=== PATIENT | female | born 1955 | race Hispanic/Latino ===

== ENCOUNTER → 2020-06-02 | Day surgery (SDC) | payer MEDICARE, OTHER ==
--- NOTE | 2020-05-30 15:50 | Diagnostic Imaging Report ---
EXAMINATION: CHEST 2 VIEWS INDICATION: Pre-operative COMPARISON: None FINDINGS: LINES/TUBES:None LUNGS:The lungs are well-inflated. No focal consolidation or pulmonary edema. PLEURA:No pleural effusion or pneumothorax. MEDIASTINUM:The cardiomediastinal silhouette appears normal in size and shape. BONES/SOFT TISSUES:No acute osseous injury. ABDOMEN:No free air under the diaphragm. IMPRESSION: No focal pneumonia or pulmonary edema. Signed by: Elenita Alvarez MD on 05/30/2020 3:47 PM
[2020-05-30 16:00] LABS: BASOPHILS # (AUTO) 0.1 (0.0-0.1); BASOPHILS % 0.6 % (0.0-1.0); EOSINOPHILS # (AUTO) 0.1 (0.0-0.4); EOSINOPHILS % 1.5 % (0.0-6.0); HEMATOCRIT 39.9 % (34.2-44.1); HEMOGLOBIN 12.7 g/dL (12.0-16.0); LYMPHOCYTES # (AUTO) 1.8 (1.0-3.2); LYMPHOCYTES % 22.9 % (18.0-39.1); MEAN CORPUSCULAR HEMOGLOBIN 29.4 pg (28-32); MEAN CORPUSCULAR HGB CONC 31.8 g/dL (31-35); MEAN CORPUSCULAR VOLUME 92.4 fL (81-99); MONOCYTES # (AUTO) 0.5 (0.2-0.8); MONOCYTES % 6.5 % (4.4-11.3); NEUTROPHILS # (AUTO) 5.4 (2.1-6.9); NEUTROPHILS % 68.4 % (38.7-80.0); PLATELET COUNT 206 x10e3/uL (140-360); RED BLOOD COUNT 4.32 x10e6/uL (3.6-5.1); RED CELL DISTRIBUTION WIDTH 12.6 % (11.7-14.4)
[2020-05-30 16:20] LABS: ALANINE AMINOTRANSFERASE 62 IU/L (0-55); ALBUMIN 3.5 g/dL (3.5-5.0); ALKALINE PHOSPHATASE 92 IU/L (40-150); ANION GAP 11.9 mmol/L (8-16); BLOOD UREA NITROGEN 15 mg/dL (7-26); BUN/CREATININE RATIO 16 (6-25); CALCIUM 8.6 mg/dL (8.4-10.2); CARBON DIOXIDE 28 mmol/L (22-29); CHLORIDE 103 mmol/L (98-107); CREATININE, SERUM 0.92 mg/dL (0.57-1.11); EST GLOMERULAR FILTRATION RATE > 60 ML/MIN (60-); GLUCOSE 115 mg/dL (74-118); POTASSIUM 3.9 mmol/L (3.5-5.1); SODIUM 139 mmol/L (136-145)
[~2020-06-02] MED LIST: ACETAMINOPHEN/CODEINE 300MG - 30MG TAB ONE; ACETAMINOPHEN325 M1 PO; ATROPINE SULFATE 1 MG/ML VIAL ONE; BUPIVACAINE 0.25%/EPI 30ML SDV INJ ONE; CEFAZOLIN SOD 1 GM/NS 50ML 50 ML IV ONE; DEXAMETHASONE SOD PHOS INJ 4 MG/ML VIAL ONE; DICYCLOMINE HCL20 MG PO; ETOMIDATE 40 MG/ 20ML VIAL IV ONE; FENTANYL CITRATE/PF 100MCG/2 ML INJ ONE; HYDROGEN PEROXIDE 120 ML BTL ONE; KETOROLAC TROMETHAMINE 30 MG/ML VIAL ONE; LISINOPRIL-HCT1 EACH PO; LOSARTAN POTASS25 MG PO; MIDAZOLAM HCL 2 MG/2 ML VIAL ONE; NEOSTIGMINE 1 MG/ML 10ML VIAL ONE; NEOSTIGMINE 5 MG/5ML SYR ONE; ONDANSETRON HCL INJ 2MG/ML 2ML 2 MG/ML VIAL ONE; ROCURONIUM BROMIDE 10 MG/ML 5ML VIAL IV ONE; SEVOFLURANE INHAL SOLN 250 ML PEN BTL ONE; ZOFRAN4 MG PO
--- NOTE | 2020-06-02 11:18 | Operative Report ---
DATE OF PROCEDURE: 06/02/2020 SURGEON: Bright Irizarry MD PREOPERATIVE DIAGNOSES: Cholelithiasis, chronic cholecystitis, morbid obesity, and hypertension. POSTOPERATIVE DIAGNOSES: Cholelithiasis, chronic cholecystitis, morbid obesity, and hypertension. PROCEDURE PERFORMED: Laparoscopic cholecystectomy. ANESTHESIA: General. ESTIMATED BLOOD LOSS: Minimal. DRAINS: None. COMPLICATIONS: None. INDICATION AND FINDINGS: A 65-year-old female, who complained of right upper quadrant pain, radiated to the back for 2 weeks. The patient had gallstones, no ductal dilatation. There is no history of jaundice or minimal elevation, slightly above normal, although transaminitis consistent with fatty liver infiltration secondary to her morbid obesity. INTRAOPERATIVE FINDINGS: Cholelithiasis, chronic cholecystitis with thickening of the gallbladder wall. The cystic duct was small. There was no ductal dilatation. DESCRIPTION OF PROCEDURE: With the patient lying on the operative table in the supine position after an administration of general anesthesia, she was prepped and draped for laparoscopic cholecystectomy. The procedure was begun by establishing the pneumoperitoneum in the right upper quadrant midclavicular line because of previous tubal ligation and then a 5 mm trocar was placed in that location. Then, under direct vision with the camera in place, a 10/11 trocar in the umbilical site and 2 lateral working ports in the right upper quadrant, right midclavicular line and approximately right anterior axillary line. The gallbladder was retracted cephalad using grasping forceps and the dissection was begun exposing the cystic duct, high in the neck of the gallbladder was identified. The common duct as well as the junction was seen 360 degrees circumferentially. We also identified an anterior cystic branch and plate of the liver. At this point, we transected the cystic duct between titanium clips as well as the cystic artery. The second cystic artery posterior one was transected between titanium clips and then we took down the gallbladder using electrocautery dissection, traction and counter traction until we detached the gallbladder. We placed it in an endobag and removed through the umbilical port. We reinstituted the pneumoperitoneum and ascertained that there was no bleeding. Hemostasis was absolute. There was no bile leak. After we irrigated the right upper quadrant, the effluent was clear. We released the pneumoperitoneum and closed the wound using 0 Vicryl for the umbilical fascia, 3-0 Vicryl for the subcutaneous tissue in that location as well as the subxiphoid port and the skin of all the ports was closed using elmer. A 0.25% Marcaine with epinephrine was given as local block at the end of the case. The patient tolerated the procedure well and taken to recovery room in stable condition. MD CIERRA Caba/ABILIO /[id number]
[2020-06-02 11:35] VITALS: BP 115/63
== END | disposition home or self-care (01) ==
LOC: OR 06:58
PROVIDERS: ATTEND Surgery
DX: K80.10 Calculus of gallbladder with chronic cholecystitis without obstruction (principal); E66.01 Morbid (severe) obesity due to excess calories; I10 Essential (primary) hypertension; Z88.0 Allergy status to penicillin; Z01.810 Encounter for preprocedural cardiovascular examination; Z01.812 Encounter for preprocedural laboratory examination; Z01.818 Encounter for other preprocedural examination; Z11.59 Encounter for screening for other viral diseases; Z68.41 Body mass index [BMI] 40.0-44.9, adult
CPT/HCPCS: 36415; 47562; 71046; 80053; 85025; 88304; 93005; C1766; J0461; J0690; J1100; J1885; J2250; J2405; J2710; J3010; U0002

== ENCOUNTER 2020-08-31 13:21 | Emergency (ER) | payer MEDICARE ==
[~2020-08-31] VITALS: Ht 157.5 cm; Wt 104.8 kg
[~2020-08-31 13:21] MED LIST changes: -ACETAMINOPHEN/CODEINE 300MG - 30MG TAB ONE; -ATROPINE SULFATE 1 MG/ML VIAL ONE; -BUPIVACAINE 0.25%/EPI 30ML SDV INJ ONE; -CEFAZOLIN SOD 1 GM/NS 50ML 50 ML IV ONE; -DEXAMETHASONE SOD PHOS INJ 4 MG/ML VIAL ONE; -ETOMIDATE 40 MG/ 20ML VIAL IV ONE; -FENTANYL CITRATE/PF 100MCG/2 ML INJ ONE; -HYDROGEN PEROXIDE 120 ML BTL ONE; -KETOROLAC TROMETHAMINE 30 MG/ML VIAL ONE; -MIDAZOLAM HCL 2 MG/2 ML VIAL ONE; -NEOSTIGMINE 1 MG/ML 10ML VIAL ONE; -NEOSTIGMINE 5 MG/5ML SYR ONE; -ONDANSETRON HCL INJ 2MG/ML 2ML 2 MG/ML VIAL ONE; -ROCURONIUM BROMIDE 10 MG/ML 5ML VIAL IV ONE; -SEVOFLURANE INHAL SOLN 250 ML PEN BTL ONE
[2020-08-31 14:40] LABS: BILIRUBIN,URINE NEGATIVE (NEGATIVE); CLARITY,URINE SL CLOUDY (CLEAR); COLOR,URINE YELLOW (YELLOW); KETONES,URINE NEGATIVE (NEGATIVE); LEUKOCYTE ESTERASE ,URINE MODERATE (NEGATIVE); NITRITE,URINE NEGATIVE (NEGATIVE); PROTEIN,URINE DIPSTICK NEGATIVE (NEGATIVE); URINE UROBILINOGEN 0.2 mg/dL (0.2 - 1)
[2020-08-31 14:44] LABS: BACTERIA,URINE MODERATE /HPF; EPITHELIAL CELLS,URINE MODERATE /LPF
[2020-08-31 14:45] LABS: MUCUS,URINE FEW (RARE)
--- NOTE | 2020-08-31 15:17 | Diagnostic Imaging Report ---
Examination: CT BRAIN WO CONTRAST History:^N ^LEFT SIDED HEADACHE, LEFT FARNSWORTH'S PALSY ^[id number] ^[id number] Comparison studies:None Technique: Axial images were obtained from the skull base to the vertex. Coronal and sagittal images reconstructed from the axial data. Dose modulation, iterative reconstruction, and/or weight based adjustment of the mA/kV was utilized to reduce the radiation dose to as low as reasonably achievable. Intravenous contrast: None Findings: Scalp: No abnormalities. Bones: No fractures, blastic or lytic lesions. Brain sulci: Appropriate for age. Ventricles: Normal in size and configuration. No hydrocephalus. Extra-axial space: No abnormalities. Parenchyma: No masses, hemorrhage, or acute or chronic cortical based vascular insults.. Sellar/suprasellar region: No abnormalities. Craniocervical junction: Patent foramen magnum. No Chiari one malformation. Incidental findings: None. Impression: No acute intracranial abnormalities. Signed by: Dr. Jyoti Lebron M.D. on 08/31/2020 3:13 PM
--- NOTE | 2020-08-31 16:07 | Emergency Department Note ---
History of Present Illnes History of Present Illness Chief Complaint: Headache History of Present Illness This is a 65 year old female Patient in from home with complaints of headache and neck ache since last week. Patient was seen by her PCP for a very low blood pressure reading at home last week and was diagnosed with Donahue's Palsy and a UTI after blood work, EKG and urine was done. Patient took antibiotics for the UTI. Patient states that her headache started yesterday and is in the left side of her head. Patient is alert and oriented in triage, no acute distress noted, ambulatory without assistance. Historian: Patient Arrival Mode: [employer] Consultant Required: No Onset (how long ago): day(s) Location: left head Quality: ache Radiation: Reports non-radiation Severity: moderate Onset quality: gradual Timing of current episode: intermittent Progression: waxing and waning Chronicity: new Context: Reports recent illness (dx with Donahue's 2 d ago, had UTI last week) Relieving factors: none Exacerbating factors: none Associated symptoms: Reports denies other symptoms, Reports headaches Past Medical/Family History Physician Review I have reviewed the patient's past medical and family history. Any updates have been documented here. Past Medical History Recent Fever: No Clinical Suspicion of Infectio: No New/Unexplained Change in Ment: No Past Medical History: Hypertension Past Surgical History: Cholecysctectomy Social History Smoking Cessation: Never Smoker Counseling Performed: No Alcohol Use: None Any Illegal Drug Use: No TB Exposure/Symptoms: No Physically hurt or threatened: No Family History Family history of heart diseas: No Other Any Pre-Existing Lines (PICC,: No Review of Systems Review of Systems Constitutional: Reports no symptoms EENTM: Reports no symptoms Cardiovascular: Reports no symptoms Respiratory: Reports no symptoms Gastrointestinal: Reports no symptoms Genitourinary: Reports no symptoms Musculoskeletal: Reports no symptoms Integumentary: Reports no symptoms Neurological: Reports headache, Reports paresthesia, Reports weakness (left face) Psychological: Reports no symptoms Endocrine: Reports no symptoms Hematological/Lymphatic: Reports no symptoms Review of other systems: All other systems negative Physical Exam Related Data Allergies: Coded Allergies: Penicillins (Verified Allergy, Unknown, 05/18/20) Triage Vital Signs Vital Signs Date Time Temp Pulse Resp B/P (MAP) Pulse Ox O2 Delivery O2 Flow Rate FiO2 08/31/20 13:48 98.8 84 19 147/88 100 Room Air Vital signs reviewed: Yes Physical Exam CONSTITUTIONAL Constitutional: Present well-developed, Present well-nourished HENT HENT: Present normocephalic, Present atraumatic, Present oropharynx clear/moist, Present nose normal HENT L/R: Present left ext ear normal, Present right ext ear normal EYES Eyes: Reports PERRL, Reports conjunctivae normal NECK Neck: Present ROM normal, Present other (spasm of trapezeus and tenderness at insertion at occiput) PULMONARY Pulmonary: Present effort normal, Present breath sounds normal CARDIOVASCULAR Cardiovascular: Present regular rhythm, Present heart sounds normal, Present capillary refill normal, Present normal rate GASTROINTESTINAL Abdominal: Present soft, Present nontender, Present bowel sounds normal GENITOURINARY Genitourinary: Present exam deferred SKIN Skin: Present warm, Present dry MUSCULOSKELETAL Musculoskeletal: Present ROM normal NEUROLOGICAL Neurological: Present alert, Present oriented x 3, Present cranial nerve deficit (left facial palsy involving left eyebrow also), Present sensory deficit (left face and forehead); Absent abnormal gait PSYCHOLOGICAL Psychological: Present mood/affect normal, Present judgement normal Results Laboratory Laboratory Laboratory Tests Test 08/31/20 14:02 Urine Color Yellow (YELLOW) Urine Clarity Sl cloudy (CLEAR) Urine pH 6 (5 - 7) Urine Specific [place] 1.020 (1.010-1.025) Urine Protein Negative (NEGATIVE) Urine Glucose (UA) Negative (NEGATIVE) Urine Ketones Negative (NEGATIVE) Urine Blood Negative (NEGATIVE) Urine Nitrite Negative (NEGATIVE) Urine Bilirubin Negative (NEGATIVE) Urine Urobilinogen 0.2 mg/dL (0.2 - 1) Urine Leukocyte Esterase Moderate (NEGATIVE) Urine RBC 6-10 /HPF (0-5) Urine WBC 11-20 /HPF (0-5) Urine Epithelial Cells Moderate /LPF (NONE) Urine Bacteria Moderate /HPF (NONE) Urine Mucus Few (RARE) Laboratory Tests Test 08/31/20 14:02 Urine Color Yellow (YELLOW) Urine Clarity Sl cloudy (CLEAR) Urine pH 6 (5 - 7) Urine Specific [place] 1.020 (1.010-1.025) Urine Protein Negative (NEGATIVE) Urine Glucose (UA) Negative (NEGATIVE) Urine Ketones Negative (NEGATIVE) Urine Blood Negative (NEGATIVE) Urine Nitrite Negative (NEGATIVE) Urine Bilirubin Negative (NEGATIVE) Urine Urobilinogen 0.2 mg/dL (0.2 - 1) Urine Leukocyte Esterase Moderate (NEGATIVE) Urine RBC 6-10 /HPF (0-5) Urine WBC 11-20 /HPF (0-5) Urine Epithelial Cells Moderate /LPF (NONE) Urine Bacteria Moderate /HPF (NONE) Urine Mucus Few (RARE) Lab results reviewed: Yes Imaging Imaging results reviewed: Yes Impressions Examination: CT BRAIN WO CONTRAST History:^N ^LEFT SIDED HEADACHE, LEFT DONAHUE'S PALSY ^[id number] ^[id number] Comparison studies:None Technique: Axial images were obtained from the skull base to the vertex. Coronal and sagittal images reconstructed from the axial data. Dose modulation, iterative reconstruction, and/or weight based adjustment of the mA/kV was utilized to reduce the radiation dose to as low as reasonably achievable. Intravenous contrast: None Findings: Scalp: No abnormalities. Bones: No fractures, blastic or lytic lesions. Brain sulci: Appropriate for age. Ventricles: Normal in size and configuration. No hydrocephalus. Extra-axial space: No abnormalities. Parenchyma: No masses, hemorrhage, or acute or chronic cortical based vascular insults.. Sellar/suprasellar region: No abnormalities. Craniocervical junction: Patent foramen magnum. No Chiari one malformation. Incidental findings: None. Impression: No acute intracranial abnormalities. Signed by: Dr. Jyoti Lebron M.D. on 08/31/2020 3:13 PM Assessment & Plan Medical Decision Making MDM check CT brain, UA - r/o cerebral bleed, cva, uti Reassessment Reassessment DC HOME, VALIUM 2 MG TID PRN, CEFTIN 500 BID X 10 DAYS, F/U PCP Assessment & Plan Final Impression: (1) UTI (urinary tract infection) (2) Muscle spasm (3) Headache (4) Donahue's palsy Depart Disposition: HOME, SELF-CARE Last Vital Signs Date Time Temp Pulse Resp B/P (MAP) Pulse Ox O2 Delivery O2 Flow Rate FiO2 08/31/20 13:48 98.8 84 19 147/88 100 Room Air Home Meds Active Scripts Dicyclomine Hcl (DICYCLOMINE HCL) 20 Mg Tablet, 20 MG PO QID for pain, #20 TAB Prov:ROOPA GOLDEN MD 05/18/20 Reported Medications Losartan Potassium (LOSARTAN POTASSIUM) 25 Mg Tablet, 12.5 MG PO DAILY 05/30/20 Acetaminophen (ACETAMINOPHEN) 325 Mg Tablet, 325 MG PO Q6H PRN for Mild Pain (1- 3) or Fever>100.8 for 5 Days, TAB 05/30/20 KG BOYLE MD Aug 31, 2020 16:07
--- OUTSIDE RECORDS SUMMARY | 2020-09-01 19:43 | XMS REPORT | Continuity of Care Document ---
Author Author [facility] t Organization [facility] Address [address] [place] [address] Phone Unavailable Care Team Providers Care Learning Manager Name Role Phone MD Joana CALZADA PCP Joana BOYLE Attphys Unavailable KEMAL DIAMOND Attphys Unavailable Loc GOLDEN Attphys Unavailable Payers Payer Name Policy Type Policy Number Effective Date Expiration Date Cristian herrera [facility] [id number] [facility] Problems Condition Name Condition Details Condition Category Status Onset Date Resolution Date Last Treatment Date Treating Clinician Comments Source Cholelithiasis Problem Active C [facility] Allergies, Adverse Reactions, Alerts Allergy Name Allergy Type Status Severity Reaction(s) Onset Date Inacti ve Date Treating Clinician Comments Source Penicillin Allergy to substance Active 2020-05-18 00:00:00 [facility] Social History Social Habit Start Date Stop Date Quantity Comments Source Sex Assigned At 1955 00:00:00 1955 00:00:00 Female [facility] Medications Ordered Medication Name Filled Medication Name Start Date Stop Da te Current Medication? Ordering Clinician Indication Dosage Frequency Signature (SIG) Comments Components Source Dicyclomine Hcl Dicyclomine Hcl 2020-05-18 16:37:00 Yes 20 Four Times Daily for Pain [facility] Ondansetron Hcl (Zofran*) 4 Mg TABLET Ondansetron Hcl (Zofra n*) 4 Mg TABLET 2020-05-18 16:37:00 Yes 4 Every 6 Hours as n eeded for Nausea [facility] Lisinopril/Hydrochlorothiazide (Lisinopril-Hctz 20-12. 5 Mg Tab) 1 Each TABLET Lisinopril/Hydrochlorothiazide (Lisinopril-Hctz 20-12.5 Mg Tab) 1 Each TABLET Yes Daily [facility] Vital Signs Vital Name Observation Time Observation Value Comments Source Weight 2020-05-18 15:10:00 231 [lb_av] [facility] BMI (Body Mass Index) 2020-05-18 15:10:00 42.2 kg/m2 [facility] Procedures Procedure Date / Time Performed Performing Clinician Sourc e US Abdomen limited 2020-05-18 00:00:00 [facility] Plan of Care Planned Activity Planned Date Details Comments Source Instructions Cholelithiasis [facility] Encounters Start Date/Time End Date/Time Encounter Type Admission Type Attendi [facility] Facility Care Department Encounter ID Source 2020-05-18 15:45:00 2020-05-18 15:45:00 Registered Emergency Room ROOPA GOLDEN [facility] [id number] I [facility] Results Test Description Test Time Test Comments Results Result Comments Source CT BRAIN WO 2020-08-31 15:12:00 [facility] 1955 Sex: F [place] [address] Patient Name: DENEEN MEDINA MR #: [id number] : 1955 Age/Sex: 65/F Req #: [id number] Adm Physician: Ordered by: KG BOYLE MD Report #: [id number] Location: Room/Bed: Procedure: [id number] CT/CT BRAIN WO Exam Date: 08/31/20 Exam Time: 1430 REPORT STATUS: Signed Examination: CT BRAIN WO CONTRAST History: N LEFT SIDED HEADACHE, LEFT FARNSWORTH'S PALSY [id number] Comparison studies:None Technique: Axial images were obtained from the skull base to the vertex. Coronal and sagittal images reconstructed from the axial data. Dose modulation, iterative reconstruction, and/or weight based adjustment of the mA/kV was utilized to reduce the radiation dose to as low as reasonably achievable. Intravenous contrast: None Findings: Scalp: No abnormalities. Bones: No fractures, blastic or lytic lesions. Brain sulci: Appropriate for age. Ventricles: Normal in size and configuration. No hydrocephalus. Extra-axial space: No abnormalities. Parenchyma: No masses, hemorrhage, or acute or chronic cortical based vascular insults.. Sellar/suprasellar region: No abnormalities. Craniocervical junction: Patent foramen magnum. No Chiari one malformation. Incidental findings: None. Impression: No acute intracranial abnormalities. Signed by: Dr. Jyoti Lebron M.D. on 08/31/2020 3:13 PM Dictated By: JYOTI ROSAS MD 12 Transcribed By: CHRISTO on 08/31/201512 COPY TO: KG BOYLE MD CHEST 2 VIEWS 2020-05-30 15:47:00 [place] [address] Patient Name: DENEEN MEDINA MR #: [id number] : 1955 Age/Sex: 65/F Req #: [id number] Adm Physician: Ordered by: KEMAL DIAMOND MD Report #: [id number] Location: OR Room/Bed: Procedure: [id number] DX/CHEST 2 VIEWS Exam Date: 05/30/20 Exam Time: 153 REPORT STATUS: Signed EXAMINATION: CHEST 2 VIEWS INDICATION: Pre-operative COMPARISON: None FINDINGS: LINES/TUBES:None LUNGS:The lungs are well-inflated. No focal consolidation or pulmonary edema. PLEURA:No pleural effusion or pneumothorax. MEDIAS TINUM:The cardiomediastinal silhouette appears normal in size and shape. BONES/SOFT TISSUES:No acute osseous injury. ABDOMEN:No free air under the diaphragm. IMPRESSION: No focal pneumonia or pulmonary edema. Signed by: Marisel Bocanegra MD on 05/30/2020 3:47 PM Dictated By: MARISEL BOCANEGRA MD 46 Transcribed By: CHRISTO on 05/30/201546 COPY TO: KEMAL DIAMOND MD ABDOMEN LIMITED 2020-05-18 16:00:00 [place] [address] 5 Patient Name: DENEEN MEDINA MR #: [id number] : 1955 Age/Sex: 65/F Req #: [id number] Adm Physician: Ordered by: ROOPA GOLDEN MD Report #: [id number] Location: ER Room/Bed: Procedure: [id number] US/US ABDOMEN LIMITED Exam Date: 05/18/20 Exam Time: 1528 REPORT STATUS: Signed EXAM: Right upper quadrant abdominal ultrasound INDICATION: Right upper quadrant pain COMPARISON: None. TECHNIQUE: Transverse and longitudinal images of the right upper quadrant abdomen were obtained FINDINGS: Liver: Size: 12.3 cm in the right midclavicular line, normal Appearance: Normal echogenicity, smooth contour Mass: No focal masses Gallbladder: Subcentimeters shadowing gallstones in the gallbladder. No gallbladder distention, wall thickening, or pericholecystic fluid. Negative sonographic Robledo's sign. Gallbladder wall measures up to 2 mm. Bile Ducts: Intrahepatic Ducts: No dilatation Extrahepatic Ducts: Common bile duct measures 3 mm Pancreas: Visualized portions of the pancreatic head, neck and proximal body are normal. Kidney: The right kidney measures 10.9 cm without evidence of hydronephrosis or stone. Vessels: Aorta: Visualized portions are normal Inferior Vena Cava: Visualized portions are normal Main Portal Vein: 1.0 cm, normal size with hepatopetal flow. Free Fluid: No ascites or pleural effusion IMPRESSION: Cholelithiasis without sonographic evidence of acute cholecystitis. Signed by: Marisel Bocanegra MD on 05/18/2020 4:02 PM Dictated By: MARISEL BOCANEGRA MD 160 Transcribed By: CHRISTO on 05/18/20 1602 COPY TO: ROOPA GOLDEN MD Blood leukocytes automated count (number/volume) 2020-05-18 15:20:00 Test Item White Blood Count (test code = 6690-2) 6.69 4.8-10.8 [facility] erythrocytes automated count (number/volume)2020-05-18 15:20:00* Test Item Value Reference Range Interpretation Comments Red Blood Count (test code = 789-8) 4.62 3.6-5.1 [facility] Area[facility] hemoglobin measurement (moles/volume)2020-05-18 15:20:00* Test Item Value Reference Range Interpretation Comments Hemoglobin (test code = 86512-5) 13.5 12.0-16.0 [facility] AreaAutomated blood hematocrit (volume fraction)2020-05-18 15:20:00* Test Item Value Reference Range Interpretation Comments Hematocrit (test code = 4544-3) 43.0 34.2-44.1 [facility] AreaAutomated erythrocyte mean corpuscular [id number] 15:20:00* Test Item Value Reference Range Interpretation Comments Mean Corpuscular Volume (test code = 787-2) 93.1 81-99 [facility] AreaAutomated erythrocyte mean corpuscular hemoglobin (mass per erythrocyte)2020-05-18 15:20:00* Test Item Value Reference Range Interpretation Comments Mean Corpuscular Hemoglobin (test code = 785-6) 29.2 28-32 [facility] AreaAutomated erythrocyte mean corpuscular hemoglobin concentration measurement (mass/volume)2020-05-18 15:20:00* Test Item Value Reference Range Interpretation Comments Mean Corpuscular Hemoglobin Concent (test code = 786-4) 31.4 31-35 [facility] AreaRDW QtxRd-Olr9415-44-22 15:20:00* Test Item Value Reference Range Interpretation Comments Red Cell Distribution Width (test code = 33271-8) 12.9 11.7 -14.4 [facility] AreaAutomated blood platelet count (count/volume)2020-05-18 15:20:00* Test Item Value Reference Range Interpretation Comments Platelet Count (test code = 777-3) 225 140-360 [facility] AreaAutomated blood segmented neutrophil count as percentage of total hpjzfwdmof6458-55-99 15:20:00* Test Item Value Reference Range Interpretation Comments Neutrophils (%) (Auto) (test code = 86029-1) 57.7 38.7-80.0 [facility] AreaAutomated blood lymphocyte count as percentage ot total lachxjygik7224-33-16 15:20:00* Test Item Value Reference Range Interpretation Comments Lymphocytes (%) (Auto) (test code = 736-9) 29.1 18.0-39.1 [facility] AreaAutomated blood monocyte count as percentage of total baoxbvzgwu9078-51-82 15:20:00* Test Item Value Reference Range Interpretation Comments Monocytes (%) (Auto) (test code = 5905-5) 9.3 4.4-11.3 [facility] AreaAutomated blood eosinophil count as percentage of total lhcoxecqqa6212-57-89 15:20:00* Test Item Value Reference Range Interpretation Comments Eosinophils (%) (Auto) (test code = 713-8) 2.7 0.0-6.0 [facility] AreaAutomated blood basophil count as percentage of total eothvcbocy8736-75-03 15:20:00* Test Item Value Reference Range Interpretation Comments Basophils (%) (Auto) (test code = 706-2) 0.9 0.0-1.0 [facility] AreaFluoroscopic procedure less than one hour nrhpubgq8643-32-04 15:20:00* Test Item Value Reference Range Interpretation Comments IM GRANULOCYTES % (test code = IM GRANULOCYTES %) 0.3 0.0- 1.0 [facility] AreaAutomated blood neutrophil count 2020-05-18 15:20:00* Test Item Value Reference Range Interpretation Comments Neutrophils # (Auto) (test code = 751-8) 3.9 2.1-6.9 [facility] AreaBlood lymphocytes count (number/volume) 2020-05-18 15:20:00* Test Item Value Reference Range Interpretation Comments Lymphocytes # (Auto) (test code = 02013-0) 2.0 1.0-3.2 [facility] AreaBlood monocytes automated count (number/volume)2020-05-18 15:20:00* Test Item Value Reference Range Interpretation Comments Monocytes # (Auto) (test code = 742-7) 0.6 0.2-0.8 [facility] AreaAutomated blood eosinophil count 2020-05-18 15:20:00* Test Item Value Reference Range Interpretation Comments Eosinophils # (Auto) (test code = 711-2) 0.2 0.0-0.4 [facility] AreaAutomated blood basophil count (count/volume)2020-05-18 15:20:00* Test Item Value Reference Range Interpretation Comments Basophils # (Auto) (test code = 704-7) 0.1 0.0-0.1 [facility] AreaFluoroscopic procedure less than one hour cycinhjc1373-05-47 15:20:00* Test Item Value Reference Range Interpretation Comments Absolute Immature Granulocyte (auto (kulwinder t code = Absolute Immature Granulocyte (auto) 0.02 0-0.1 [facility] AreaUrine color ozznfbcufdxtk9760-47-39 15:20:00* Test Item Value Reference Range Interpretation Comments Urine Color (test code = 5778-6) YELLOW YELLOW [facility] AreaUrine cuzorzf3600-27-87 15:20:00* Test Item Value Reference Range Interpretation Comments Urine Clarity (test code = 38413-9) SL CLOUDY CLEAR [facility]iscopecific gravity of Urine by Test strip 2020-05-18 15:20:00* Test Item Value Reference Range Interpretation Comments Urine Specific [place] (test code = 5811-5) 1.025 1.010-1.02 5 [facility] AreaUrine pH measurement by automated test dtxsq8303-96-25 15:20:00* Test Item Value Reference Range Interpretation Comments Urine pH (test code = 08381-4) 6 5-7 [facility] AreaUrine leukocyte esterase detection by jfevjics0716-37-51 15:20:00* Test Item Value Reference Range Interpretation Comments Urine Leukocyte Esterase (test code = 5799-2) SMALL NEGATIVE [facility] AreaUrine nitrite encddrndb2327-36-34 15:20:00* Test Item Value Reference Range Interpretation Comments Urine Nitrite (test code = 49281-9) NEGATIVE NEGATIVE [facility] AreaUrine protein measurement by test strip (mass/volume)2020-05-18 15:20:00* Test Item Value Reference Range Interpretation Comments Urine Protein (test code = 5804-0) NEGATIVE NEGATIVE [facility] AreaUrine glucose kdyikcrab0858-29-25 15:20:00* Test Item Value Reference Range Interpretation Comments Urine Glucose (UA) (test code = 2349-9) NEGATIVE NEGATIVE [facility] AreaUrine ketones detection by automated test arybt4962-99-45 15:20:00* Test Item Value Reference Range Interpretation Comments Urine Ketones (test code = 41539-2) NEGATIVE NEGATIVE [facility] AreaUrine urobilinogen measurement by test strip (mass/volume)2020-05-18 15:20:00* Test Item Value Reference Range Interpretation Comments Urine Urobilinogen (test code = 94438-1) 0.2 0.2-1 [facility] AreaUrine total bilirubin measurement (mass/volume)2020-05-18 15:20:00* Test Item Value Reference Range Interpretation Comments Urine Bilirubin (test code = 1978-6) NEGATIVE NEGATIVE [facility] AreaUrine erythrocytes xdwittlhb8756-23-28 15:20:00* Test Item Value Reference Range Interpretation Comments Urine Blood (test code = 78273-6) NEGATIVE NEGATIVE [facility] AreaAutomated urine sediment leukocyte count by microscopy (number/high power field)2020-05-18 15:20:00* Test Item Value Reference Range Interpretation Comments Urine WBC (test code = 5821-4) 11-20 0-5 [facility] AreaErythrocytes detection in urine sediment by light kmwbehokqk3912-29-96 15:20:00* Test Item Value Reference Range Interpretation Comments Urine RBC (test code = 58641-6) NONE 0-5 [facility] AreaBacteria detection in urine sediment by light eerjaypgjn4537-25-91 15:20:00* Test Item Value Reference Range Interpretation Comments Urine Bacteria (test code = 28719-4) MODERATE NONE [facility] AreaEpithelial cells detection in urine sediment by light httmffdotu3119-67-19 15:20:00* Test Item Value Reference Range Interpretation Comments Urine Epithelial Cells (test code = 85729-0) MANY NONE [facility] AreaTransitional cells detection in urine sediment by light majjkhajkj2534-33-26 15:20:00* Test Item Value Reference Range Interpretation Comments Urine Transitional Epithelial Cells (test code = 8249-5) FEW NONE [facility]iscoerum or plasma sodium measurement (moles/volume)2020-05-18 15:20:00* Test Item Value Reference Range Interpretation Comments Sodium Level (test code = 2951-2) 139 136-145 [facility] Friscoerum or plasma potassium measurement (moles/volume)2020-05-18 15:20:00* Test Item Value Reference Range Interpretation Comments Potassium Level (test code = 2823-3) 4.2 3.5-5.1 [facility]iscoerum or plasma chloride measurement (moles/volume)2020-05-18 15:20:00* Test Item Value Reference Range Interpretation Comments Chloride Level (test code = 2075-0) 105 98-107 [facility] Friscoerum or plasma carbon dioxide, total measurement (moles/volume)2020-05-18 15:20:00* Test Item Value Reference Range Interpretation Comments Carbon Dioxide Level (test code = 2028-9) 23 22-29 [facility]iscoerum or plasma anion bmz7758-82-82 15:20:00* Test Item Value Reference Range Interpretation Comments Anion Gap (test code = 22791-0) 15.2 8-16 [facility]iscoerum or plasma urea nitrogen measurement (mass/volume)2020-05-18 15:20:00* Test Item Value Reference Range Interpretation Comments Blood Urea Nitrogen (test code = 3094-0) 15 7-26 [facility]iscoerum or plasma creatinine measurement (mass/volume)2020-05-18 15:20:00* Test Item Value Reference Range Interpretation Comments Creatinine (test code = 2160-0) 0.93 0.57-1.11 [facility]iscoerum or plasma urea nitrogen/creatinine mass xdhqg5758-05-78 15:20:00* Test Item Value Reference Range Interpretation Comments BUN/Creatinine Ratio (test code = 3097-3) 16 6-25 [facility] AreaEstimated glomerular filtration rate (GFR) cghfnfgvkbtwr8542-67-31 15:20:00* Test Item Value Reference Range Interpretation Comments Estimat Glomerular Filtration Rate (test code = 484662568) > 60 >60 Ranges were taken from the National Kidney Disease Education Program and the [facility] Foundation literature.Reference ranges:60 or greater: Lqqctg88-45 ( for 3 consecutive months): Chronic kidney disease 15 or less: Kidney failureCorpus Christi Medical Center Bay AreaGlucose ftzucffkyqj2371-74-89 15:20:00* Test Item Value Reference Range Interpretation Comments Glucose Level (test code = RKC7228) 91 74-118 [facility]iscoerum or plasma calcium measurement (mass/volume)2020-05-18 15:20:00* Test Item Value Reference Range Interpretation Comments Calcium Level (test code = 62950-7) 9.1 8.4-10.2 [facility]iscoerum or plasma total bilirubin measurement (mass/volume)2020-05-18 15:20:00* Test Item Value Reference Range Interpretation Comments Total Bilirubin (test code = 1975-2) 0.4 0.2-1.2 [facility] AreaFluoroscopic procedure less than one hour vqzzrmdw4802-08-86 15:20:00* Test Item Value Reference Range Interpretation Comments Aspartate Amino Transf (AST/SGOT) (test code = Aspartate Amino Transf (AST/SGOT)) 64 5-34 [facility]iscoerum or plasma alanine aminotransferase measurement (enzymatic activity/volume)2020-05-18 15:20:00* Test Item Value Reference Range Interpretation Comments Alanine Aminotransferase (ALT/SGPT) (test code = 1742-6) 83 0-55 [facility]iscoerum or plasma protein measurement (mass/volume)2020-05-18 15:20:00* Test Item Value Reference Range Interpretation Comments Total Protein (test code = 2885-2) 7.5 6.5-8.1 [facility]iscoerum or plasma albumin measurement (mass/volume)2020-05-18 15:20:00* Test Item Value Reference Range Interpretation Comments Albumin (test code = 1751-7) 4.0 3.5-5.0 [facility] AreaPlasma globulin measurement (mass/volume) 2020-05-18 15:20:00* Test Item Value Reference Range Interpretation Comments Globulin (test code = 09530-0) 3.5 2.3-3.5 [facility]iscoerum or plasma albumin/globulin mass [id number] 15:20:00* Test Item Value Reference Range Interpretation Comments Albumin/Globulin Ratio (test code = 1759-0) 1.1 0.8-2.0 [facility]iscoerum or plasma alkaline phosphatase measurement (enzymatic activity/volume)2020-05-18 15:20:00* Test Item Value Reference Range Interpretation Comments Alkaline Phosphatase (test code = 6768-6) 98 40-150 [facility]iscoerum or plasma lipase measurement (enzymatic activity/volume)2020-05-18 15:20:00* Test Item Value Reference Range Interpretation Comments Lipase (test code = 3040-3) 26 8-78 [facility]
== END 2020-08-31 17:59 | disposition home or self-care (01) ==
LOC: ER 15:42
DX: G51.0 Bell's palsy (principal); N39.0 Urinary tract infection, site not specified; M54.2 Cervicalgia; M62.838 Other muscle spasm; R51.9 Headache, unspecified; I10 Essential (primary) hypertension
CPT/HCPCS: 70450; 81001; 87086; 99282

== ENCOUNTER → 2024-07-16 | Day surgery (SDC) | payer MEDICARE, OTHER ==
[2024-07-10 09:10] LABS: BASOPHILS # (AUTO) 0.1 (0.0-0.1); BASOPHILS % 0.8 % (0.0-1.0); EOSINOPHILS # (AUTO) 0.2 (0.0-0.4); EOSINOPHILS % 2.6 % (0.0-6.0); HEMATOCRIT 41.4 % (34.2-44.1); HEMOGLOBIN 13.1 g/dL (12.0-16.0); LYMPHOCYTES # (AUTO) 1.6 (1.0-3.2); LYMPHOCYTES % 24.5 % (18.0-39.1); MEAN CORPUSCULAR HGB CONC 31.6 g/dL (31-35); MONOCYTES # (AUTO) 0.5 (0.2-0.8); MONOCYTES % 6.9 % (4.4-11.3); NEUTROPHILS # (AUTO) 4.3 (2.1-6.9); PLATELET COUNT 186 x10e3/uL (140-360); RED BLOOD COUNT 4.36 x10e6/uL (3.6-5.1); RED CELL DISTRIBUTION WIDTH 12.5 % (11.7-14.4); WHITE BLOOD COUNT 6.66 x10e3/uL (4.8-10.8)
[~2024-07-16] MED LIST changes: +CIPRO250 MG PO; +CRESTOR40 MG PO; +FENTANYL CITRATE/PF 100MCG/2 ML INJ ONE; +LEVSIN-SL0.125 MG SL; +LIDOCAINE HCL 2% LOCAL INJ 5 ML SDV VIAL INJ ONE; +LOSARTAN-HCTZ1 EACH PO; +MIDAZOLAM HCL 2 MG/2 ML VIAL ONE; +PROPOFOL IV EMULSION 10 MG/ML 20 ML VIAL ONE
[2024-07-16] MEDS: LACTATED RINGER'S 1,000 ML ONE (07:20)
[2024-07-16 08:07] VITALS: TEMP 97.2
[2024-07-16 08:30] VITALS: BP 132/69; PULSE 57; RESP 18; O2SAT 100
== END | disposition home or self-care (01) ==
LOC: OR 06:04
PROVIDERS: ATTEND Internal Medicine Gastroenterology
DX: Z12.11 Encounter for screening for malignant neoplasm of colon (principal); K63.5 Polyp of colon; K57.30 Diverticulosis of large intestine without perforation or abscess without bleeding; K64.8 Other hemorrhoids; K29.50 Unspecified chronic gastritis without bleeding; K31.89 Other diseases of stomach and duodenum; K44.9 Diaphragmatic hernia without obstruction or gangrene; I10 Essential (primary) hypertension; E78.00 Pure hypercholesterolemia, unspecified; E66.01 Morbid (severe) obesity due to excess calories; Z68.41 Body mass index [BMI] 40.0-44.9, adult; F17.200 Nicotine dependence, unspecified, uncomplicated; R00.1 Bradycardia, unspecified; Z01.810 Encounter for preprocedural cardiovascular examination; Z01.812 Encounter for preprocedural laboratory examination; Z88.0 Allergy status to penicillin
CPT/HCPCS: 36415; 43239; 45385; 85025; 88305; 88342; 93005; J2001; J2250; J2704; J3010; J7121